=== PATIENT | female | born 2000 | race Caucasian/White ===

== ENCOUNTER 2023-05-28 19:04 | Emergency (ER) | payer OTHER ==
[2023-05-28 19:10] VITALS: RESP 16; TEMP 97.9; O2SAT 100
--- NOTE | 2023-05-28 19:14 | ERPHSYRPT ---
- History of Present Illness Time Seen by Provider: 05/28/23 19:04 Historian: patient Exam Limitations: no limitations Physician History: Pt states she has had sharp intermittent left anterior chest pain since 8.5 hours with episodes lasting up to 1 minute with nausea; denies shortness of air, fever, cough, vomiting, abdominal pain. Aspirin Treatment Today: no aspirin today Allergies/Adverse Reactions: No Known Drug Allergies Allergy (Verified 05/28/23 19:22) Home Medications: No Reportable Medications [No Reported Medications] 01/26/23 [History] Hx Tetanus, Diphtheria Vaccination/Date Given: Yes Hx Influenza Vaccination/Date Given: No Hx Pneumococcal Vaccination/Date Given: No Travel Risk - Vaccine Status Have you recieved a Covid-19 vaccination: No - Review of Systems Constitutional: No Fever Ears, Nose, & Throat: No Ear Pain, No Throat Pain Respiratory: No Cough, No Dyspnea Cardiac: Chest Pain Abdominal/Gastrointestinal: Nausea, No Abdominal Pain, No Vomiting Genitourinary Symptoms: No Dysuria Skin: No Rash - Past Medical History Pertinent Past Medical History: No Psycho-Social History: Depression - Past Surgical History Past Surgical History: No Female Surgical History: Section, Tubal Ligation Other Surgical History: Right tube had to be removed during tubal, ovarian cysts - Social History Smoking Status: Current some day smoker Exposure to second hand smoke: No Drug Use: none Patient Lives Alone: No (children) - Nursing Vital Signs Nursing Vital Signs: Initial Vital Signs Temperature 97.9 F 05/28/23 19:09 Pulse Rate 102 H 05/28/23 19:09 Respiratory Rate 16 05/28/23 19:09 Blood Pressure 131/97 05/28/23 19:09 O2 Sat by Pulse Oximetry 100 05/28/23 19:09 Pain Scale Pain Intensity 6 - Physical Exam General Appearance: alert Eye Exam: PERRL/EOMI Ears, Nose, Throat Exam: TMs normal, pharynx normal, moist mucous membranes Neck Exam: normal inspection Respiratory Exam: lungs clear, airway intact Cardiovascular Exam: normal heart sounds Gastrointestinal/Abdomen Exam: normal bowel sounds Back Exam: normal inspection Extremity Exam: No pedal edema Neurologic Exam: alert, cooperative Skin Exam: warm, dry - Course EKG Interpreted by Me: RATE (97), Sinus Rhythm, NORMAL AXIS, Other (QTc = 436) - Radiology Exams Chest X-ray Interpretation: Interpreted by me, No Pneumonia Ordered Tests: Active Orders 24 hr Category Date Time Status Environmental Communications Specialist STAT Care 05/28/23 19:14 Active EKG-ER Only STAT Care 05/28/23 19:11 Active IV Insertion STAT Care 05/28/23 19:11 Active CHEST 2 VIEWS (PA AND LAT) Stat Exams 05/28/23 19:12 Taken AMYLASE Stat Lab 05/28/23 19:20 Completed CBC W DIFF Stat Lab 05/28/23 19:20 Completed CMP Stat Lab 05/28/23 19:20 Completed HCG QUALITATIVE, SERUM Stat Lab 05/28/23 19:20 Completed LIPASE Stat Lab 05/28/23 19:20 Completed MAGNESIUM Stat Lab 05/28/23 19:20 Completed TROPONIN Q4H Lab 05/28/23 19:20 Completed TROPONIN Q4H Lab 05/28/23 23:15 Ordered TROPONIN Q4H Lab 05/29/23 03:15 Ordered Medication Summary Generic Name Dose Route Start Last Admin Trade Name Freq PRN Reason Stop Dose Admin Sodium Chloride 1,000 mls @ 100 mls/hr 05/28/23 19:15 05/28/23 19:18 Sodium Chloride 0.9% 1000 Ml IV 06/27/23 19:14 100 mls/hr .Q10H DAE Administration Discontinued Medications Generic Name Dose Route Start Last Admin Trade Name Freq PRN Reason Stop Dose Admin Aspirin 324 mg 05/28/23 19:13 05/28/23 19:19 Aspirin 81 Mg Tab.Chew PO 05/28/23 19:14 Not Given STAT ONE Aspirin Confirm 05/28/23 19:16 Aspirin 81 Mg Tab.Chew Administered 05/28/23 19:17 Dose 324 mg .ROUTE .STK-MED ONE Lab/Rad Data: Laboratory Result Diagrams 05/28/23 19:20 05/28/23 19:20 Laboratory Results 05/28/23 05/28/23 05/28/23 Range/Units 20:00 20:00 19:20 WBC (4.0-10.5) x10^3/uL RBC (4.1-5.4) x10^6/uL Hgb (12.0-16.0) g/dL Hct (35-47) % MCV (78-100) fL MCH (26-32) pg MCHC (32-36) g/dL RDW (11.5-14.0) % Plt Count (150-450) x10^3/uL MPV (7.5-11.0) fL Gran % (36.0-66.0) % Immature Gran % (Auto) (0.00-0.4) % Nucleat RBC Rel Count (0.00-0.1) % Eos # (Auto) (0-0.5) x10^3/uL Immature Gran # (Auto) (0.00-0.03) x10^3u/L Absolute Lymphs (auto) (1.0-4.6) x10^3/uL Absolute Monos (auto) (0.0-1.3) x10^3/uL Absolute Nucleated RBC (0.00-0.01) x10^3u/L Lymphocytes % (24.0-44.0) % Monocytes % (0.0-12.0) % Eosinophils % (0.00-5.0) % Basophils % (0.0-0.4) % Absolute Granulocytes (1.4-6.9) x10^3/uL Basophils # (0-0.4) x10^3/uL Sodium (137-145) mmol/L Potassium (3.5-5.1) mmol/L Chloride (98-107) mmol/L Carbon Dioxide (22-30) mmol/L Anion Gap (5-15) MEQ/L BUN (7-17) mg/dL Creatinine (0.52-1.04) mg/dL Estimated GFR ML/MIN Glucose (74-106) mg/dL Calcium (8.4-10.2) mg/dL Magnesium (1.6-2.3) mg/dL Total Bilirubin (0.2-1.3) mg/dL AST (14-36) U/L ALT (0-35) U/L Alkaline Phosphatase (38-126) U/L Troponin I (0.000-0.034) ng/mL Serum Total Protein (6.3-8.2) g/dL Albumin (3.5-5.0) g/dL Amylase (30-110) U/L Lipase (23-300) U/L Serum HCG, Qual NEGATIVE (NEGATIVE) Influenza Type A Ag NEGATIVE (NEGATIVE) Influenza Type B Ag NEGATIVE (NEGATIVE) RSV (PCR) NEGATIVE (NEGATIVE) SARS-CoV-2 (PCR) NEGATIVE (NEGATIVE) Group A Strep Antibody NOT DETECTED (NEGATIVE) 05/28/23 05/28/23 05/28/23 Range/Units 19:20 19:20 19:20 WBC 9.9 (4.0-10.5) x10^3/uL RBC 4.89 (4.1-5.4) x10^6/uL Hgb 14.0 (12.0-16.0) g/dL Hct 43.2 (35-47) % MCV 88.3 (78-100) fL MCH 28.6 (26-32) pg MCHC 32.4 (32-36) g/dL RDW 15.0 H (11.5-14.0) % Plt Count 323 (150-450) x10^3/uL MPV 9.8 (7.5-11.0) fL Gran % 56.7 (36.0-66.0) % Immature Gran % (Auto) 0.1 (0.00-0.4) % Nucleat RBC Rel Count 0.0 (0.00-0.1) % Eos # (Auto) 0.26 (0-0.5) x10^3/uL Immature Gran # (Auto) 0.01 (0.00-0.03) x10^3u/L Absolute Lymphs (auto) 3.17 (1.0-4.6) x10^3/uL Absolute Monos (auto) 0.77 (0.0-1.3) x10^3/uL Absolute Nucleated RBC 0.00 (0.00-0.01) x10^3u/L Lymphocytes % 32.0 (24.0-44.0) % Monocytes % 7.8 (0.0-12.0) % Eosinophils % 2.6 (0.00-5.0) % Basophils % 0.8 (0.0-0.4) % Absolute Granulocytes 5.63 (1.4-6.9) x10^3/uL Basophils # 0.08 (0-0.4) x10^3/uL Sodium 138 (137-145) mmol/L Potassium 3.8 (3.5-5.1) mmol/L Chloride 105 (98-107) mmol/L Carbon Dioxide 24 (22-30) mmol/L Anion Gap 12.8 (5-15) MEQ/L BUN 13 (7-17) mg/dL Creatinine 0.64 (0.52-1.04) mg/dL Estimated GFR 126.5 ML/MIN Glucose 108 H (74-106) mg/dL Calcium 9.8 (8.4-10.2) mg/dL Magnesium 1.9 (1.6-2.3) mg/dL Total Bilirubin 1.10 (0.2-1.3) mg/dL AST 23 (14-36) U/L ALT 16 (0-35) U/L Alkaline Phosphatase 68 (38-126) U/L Troponin I < 0.012 (0.000-0.034) ng/mL Serum Total Protein 7.5 (6.3-8.2) g/dL Albumin 4.7 (3.5-5.0) g/dL Amylase 117 H (30-110) U/L Lipase 232 (23-300) U/L Serum HCG, Qual (NEGATIVE) Influenza Type A Ag (NEGATIVE) Influenza Type B Ag (NEGATIVE) RSV (PCR) (NEGATIVE) SARS-CoV-2 (PCR) (NEGATIVE) Group A Strep Antibody (NEGATIVE) - Progress Progress: improved Counseled pt/family regarding: lab results, diagnosis, rad results Medical Desision Making - Diagnostic Testing Diagnostic test were ordered, analyzed, and reviewed by me: Yes Radiological Interpretation: Interpreted by me - Departure Departure Disposition: Home Clinical Impression: Chest pain, pharyngitis - non-strep Condition: Stable Critical Care Time: No Referrals: DOCTOR,NO FAMILY [Primary Care Provider] - Follow up/PCP as directed Instructions: Chest Pain (DC) Additional Instructions: Follow up with private doctor tomorrow. Forms: Work/School Release Form
[2023-05-28] MEDS ORDERED: Sodium Chloride 0.9% 1000 ML 1,000 ML IV SCH (19:15)
[2023-05-28] MEDS ORDERED: BABY ASPIRIN 81 MG CHEW ONE (19:16)
[2023-05-28] MEDS ORDERED: Sodium Chloride 0.9% 1000 ML 1,000 ML ONE (19:16)
[2023-05-28] MEDS: BABY ASPIRIN 81 MG CHEW PO ONE ×2 (19:18→19:19)
[2023-05-28 19:30] LABS: Absolute Neutrophil Ct (ANC) 5.63 x10^3/uL (1.4-6.9); BASOPHIL % 0.8 % (0.0-0.4); Basophil (Absolute #) 0.08 x10^3/uL (0-0.4); Eosinophil % 2.6 % (0.00-5.0); Eosinophil (Absolute #) 0.26 x10^3/uL (0-0.5); Hematocrit 43.2 % (35-47); IMMATURE GRAN # 0.01 x10^3u/L (0.00-0.03); IMMATURE GRAN % 0.1 % (0.00-0.4); Lymphocyte (Absolute #) 3.17 x10^3/uL (1.0-4.6); Mean Cell Volume 88.3 fL (78-100); Mean Corpuscular Hemoglobin 28.6 pg (26-32); Mean Corpuscular Hgb Concent. 32.4 g/dL (32-36); Mean Platelet Volume 9.8 fL (7.5-11.0); Monocyte (Absolute #) 0.77 x10^3/uL (0.0-1.3); Monocytes % 7.8 % (0.0-12.0); Neutrophil % 56.7 % (36.0-66.0); Platelet Count 323 x10^3/uL (150-450); Red Blood Count 4.89 x10^6/uL (4.1-5.4); White Blood Count 9.9 x10^3/uL (4.0-10.5)
[2023-05-28 19:44] LABS: HCG SERUM TEST NEGATIVE (NEGATIVE)
[2023-05-28 19:48] LABS: ALBUMIN 4.7 g/dL (3.5-5.0); ANION GAP 12.8 MEQ/L (5-15); BILIRUBIN,TOTAL 1.1 mg/dL (0.2-1.3); Calcium 9.8 mg/dL (8.4-10.2); Creatinine 1 0.64 mg/dL (0.52-1.04); EST GLOMERULAR FILTRATION RATE 126.5 ML/MIN; MAGNESIUM 1.9 mg/dL (1.6-2.3); Potassium 3.8 mmol/L (3.5-5.1); Total Protein 7.5 g/dL (6.3-8.2)
[2023-05-28 21:01] LABS: INFLUENZA A NEGATIVE (NEGATIVE); INFLUENZA B NEGATIVE (NEGATIVE); RESPIRATORY SYNCTIAL VIRUS NEGATIVE (NEGATIVE); SARS-CoV-2 Xpert Express NEGATIVE (NEGATIVE)
[2023-05-28 21:29] VITALS: BP 109/83; PULSE 90
--- NOTE | 2023-05-29 08:40 | XRAY ---
Indication: Chest pain. Comparison: None PA/lateral chest demonstrates normal heart, lungs, and bony thorax.
== END 2023-05-28 21:39 | disposition home or self-care (01) ==
LOC: ED 19:04
DX: R07.9 Chest pain, unspecified (principal); J02.9 Acute pharyngitis, unspecified; Z28.310 Unvaccinated for COVID-19; Z72.0 Tobacco use
CPT/HCPCS: 0241U; 36000; 36415; 71046; 80053; 82150; 83690; 83735; 84484; 84703; 85025; 87651; 93005; 93041; 99284; A9270-GY

== ENCOUNTER 2023-06-10 12:42 | Emergency (ER) | payer OTHER ==
[2023-06-10 13:14] VITALS: O2SAT 100
[2023-06-10] MEDS ORDERED: Sodium Chloride 0.9% 1000 ML 1,000 ML ONE (13:30)
[2023-06-10] MEDS ORDERED: HYDROCODONE-ACETAMIN 2.5-108/5 ML SOLUTION ONE (13:30)
[2023-06-10] MEDS: Sodium Chloride 0.9% 1000 ML 1,000 ML IV STA (13:31)
[2023-06-10] MEDS: HYDROCODONE-ACETAMIN 2.5-108/5 ML SOLUTION PO STA (13:31)
[2023-06-10 13:44] LABS: Absolute Neutrophil Ct (ANC) 5.51 x10^3/uL (1.4-6.9); BASOPHIL % 0.4 % (0.0-0.4); Basophil (Absolute #) 0.04 x10^3/uL (0-0.4); Eosinophil % 0.7 % (0.00-5.0); Eosinophil (Absolute #) 0.06 x10^3/uL (0-0.5); Hematocrit 36.1 % (35-47); Hemoglobin 11.4 g/dL (12.0-16.0); IMMATURE GRAN # 0.03 x10^3u/L (0.00-0.03); IMMATURE GRAN % 0.3 % (0.00-0.4); Lymphocyte (Absolute #) 2.64 x10^3/uL (1.0-4.6); Lymphocytes % 29.1 % (24.0-44.0); Mean Cell Volume 91.6 fL (78-100); Mean Corpuscular Hemoglobin 28.9 pg (26-32); Mean Corpuscular Hgb Concent. 31.6 g/dL (32-36); Mean Platelet Volume 10.6 fL (7.5-11.0); Monocytes % 8.8 % (0.0-12.0); Neutrophil % 60.7 % (36.0-66.0); Platelet Count 246 x10^3/uL (150-450); Red Blood Count 3.94 x10^6/uL (4.1-5.4); Red Cell Distribution Width 15.2 % (11.5-14.0); White Blood Count 9.1 x10^3/uL (4.0-10.5)
[2023-06-10 14:03] LABS: ALBUMIN 4.3 g/dL (3.5-5.0); ANION GAP 8.5 MEQ/L (5-15); BILIRUBIN,TOTAL 1.1 mg/dL (0.2-1.3); Calcium 9.6 mg/dL (8.4-10.2); Creatinine 1 0.71 mg/dL (0.52-1.04); EST GLOMERULAR FILTRATION RATE 121.7 ML/MIN; Total Protein 6.8 g/dL (6.3-8.2)
[2023-06-10] MEDS ORDERED: DECADRON 10MG INJ. ONE (14:53)
[2023-06-10] MEDS: DECADRON 10MG INJ. IV ONE (14:54)
--- NOTE | 2023-06-10 14:59 | ERPHSYRPT ---
- History of Present Illness Time Seen by Provider: 06/10/23 12:59 Source: patient, family Exam Limitations: no limitations Patient Subjective Stated Complaint: throat swelling Triage Nursing Assessment: Patient had tonsills and adenoids removed last at [facility] by Dr. Mcgrath and was discharged around 1400. At approximately 2100 patient was eating mashed potatoes and choked causing her to hemorhage- patient then went to [facility] in [place] and went back in for a second surgery to stop the bleeding by Dr. Lancaster. Patient reports that her stomach was pumped due to the blood loss but denies having a blood transfusion. Patient reports to the ER today with increased pain, swelling and states that she is not able to swallow any liquids/food or medications x 2 days. Patient reports pain to throat 10 at this time. Patient denies difficulty breathing and is resting in bed with easy respirations and O2 sat 100% on room air. Patients mother at bedside and is concerned about possible dehydration. Physician History: 23 years old female status post tonsillectomy/adenoidectomy postop day 2 presented in the ER with chief complaint of increasing throat pain and decreased oral intake even liquids makes her choke and hard time tolerating secretions. patient was given pain medications but she cannot swallow. Patient had postop bleeding on the day of surgery and was retaken to the OR with cauterization done. Patient/mom worried about dehydration/anemia. No difficulty breathing or chest pain reported. No fever or chills reported. Allergies/Adverse Reactions: No Known Drug Allergies Allergy (Verified 06/10/23 12:53) Home Medications: No Reportable Medications [No Reported Medications] 01/26/23 [History] Hx Tetanus, Diphtheria Vaccination/Date Given: Yes Hx Influenza Vaccination/Date Given: No Hx Pneumococcal Vaccination/Date Given: No Travel Risk - International Travel Have you traveled outside of the country in past 3 weeks: No - Coronavirus Screening Are you exhibiting any of the following symptoms?: No - Vaccine Status Have you recieved a Covid-19 vaccination: No - Review of Systems Constitutional: No Symptoms Eyes: No Symptoms Ears, Nose, & Throat: Throat Pain, Throat Swelling, Painful Swallowing Respiratory: No Symptoms Cardiac: No Symptoms Abdominal/Gastrointestinal: No Symptoms Genitourinary Symptoms: No Symptoms Skin: No Symptoms Neurological: No Symptoms Psychological: No Symptoms - Past Medical History Pertinent Past Medical History: No Neurological History: No Pertinent History ENT History: Other Cardiac History: No Pertinent History Respiratory History: No Pertinent History Endocrine Medical History: No Pertinent History Musculoskeletal History: No Pertinent History GI Medical History: No Pertinent History History: No Pertinent History Psycho-Social History: Depression Female Reproductive Disorders: No Pertinent History Other Medical History: vaginal x1, x2, ectopic x1. tonsilitis - Past Surgical History Past Surgical History: Yes Neuro Surgical History: No Pertinent History Cardiac: No Pertinent History Respiratory: No Pertinent History Gastrointestinal: No Pertinent History Genitourinary: No Pertinent History Musculoskeletal: No Pertinent History Female Surgical History: Section, Tubal Ligation Other Surgical History: Right tube had to be removed during tubal, ovarian cysts - Social History Smoking Status: Light tobacco smoker Exposure to second hand smoke: No Drug Use: marijuana Patient Lives Alone: No - Female History Hx Now: No - Nursing Vital Signs Nursing Vital Signs: Initial Vital Signs Pulse Rate 87 06/10/23 12:55 Respiratory Rate 19 06/10/23 12:55 Blood Pressure 110/74 06/10/23 12:55 O2 Sat by Pulse Oximetry 100 06/10/23 12:55 Pain Scale Pain Intensity 10 - Physical Exam General Appearance: no apparent distress, alert Eye Exam: bilateral eye: normal inspection, PERRL, EOMI Ear Exam: bilateral ear: auricle normal, canal normal, TM normal Nasal Exam: normal inspection Throat Exam: normal, pharynx normal, uvula swelling (Deviated to the left with tonsillar breath cauterization.), No dental tenderness Cardiovascular/Respiratory Exam: normal breath sounds, regular rate/rhythm Abdominal Exam: non-tender, soft Neurologic Exam: alert, oriented x 3, cooperative, 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 Skin Exam: normal color SpO2 Interpretation: normal SpO2: 100 O2 Delivery: Room Air Ordered Tests: Active Orders 24 hr Category Date Time Status CBC W DIFF Stat Lab 06/10/23 13:30 Completed CMP Stat Lab 06/10/23 13:30 Completed Medication Summary Discontinued Medications Generic Name Dose Route Start Last Admin Trade Name Freq PRN Reason Stop Dose Admin Hydrocodone Bitart/Acetaminophen 15 ml 06/10/23 13:26 06/10/23 13:31 Hydrocodone/Acetaminophen 5 Ml Udcup PO 06/10/23 13:27 15 ml STAT STA Administration Hydrocodone Bitart/Acetaminophen Confirm 06/10/23 13:30 Hydrocodone/Acetaminophen 5 Ml Udcup Administered 06/10/23 13:31 Dose 15 ml .ROUTE .STK-MED ONE Dexamethasone Sodium Phosphate 8 mg 06/10/23 14:39 06/10/23 14:54 Dexamethasone Sod Phosphate 10 Mg/Ml IV 06/10/23 14:40 8 mg STAT ONE Administration Dexamethasone Sodium Phosphate Confirm 06/10/23 14:53 Dexamethasone Sod Phosphate 10 Mg/Ml Administered 06/10/23 14:54 Dose 10 mg .ROUTE .STK-MED ONE Sodium Chloride 1,000 mls @ 999 mls/hr 06/10/23 13:26 06/10/23 14:34 Sodium Chloride 0.9% 1000 Ml IV 06/10/23 14:26 Infused .Q1H1M STA Infusion Sodium Chloride Confirm 06/10/23 13:30 Sodium Chloride 0.9% 1000 Ml Administered 06/10/23 13:31 Dose 1,000 mls @ ud .ROUTE .STK-MED ONE Lab/Rad Data: Laboratory Result Diagrams 06/10/23 13:30 06/10/23 13:30 Laboratory Results 06/10/23 06/10/23 Range/Units 13:30 13:30 WBC 9.1 (4.0-10.5) x10^3/uL RBC 3.94 L (4.1-5.4) x10^6/uL Hgb 11.4 L (12.0-16.0) g/dL Hct 36.1 (35-47) % MCV 91.6 (78-100) fL MCH 28.9 (26-32) pg MCHC 31.6 L (32-36) g/dL RDW 15.2 H (11.5-14.0) % Plt Count 246 (150-450) x10^3/uL MPV 10.6 (7.5-11.0) fL Gran % 60.7 (36.0-66.0) % Immature Gran % (Auto) 0.3 (0.00-0.4) % Nucleat RBC Rel Count 0.0 (0.00-0.1) % Eos # (Auto) 0.06 (0-0.5) x10^3/uL Immature Gran # (Auto) 0.03 (0.00-0.03) x10^3u/L Absolute Lymphs (auto) 2.64 (1.0-4.6) x10^3/uL Absolute Monos (auto) 0.80 (0.0-1.3) x10^3/uL Absolute Nucleated RBC 0.00 (0.00-0.01) x10^3u/L Lymphocytes % 29.1 (24.0-44.0) % Monocytes % 8.8 (0.0-12.0) % Eosinophils % 0.7 (0.00-5.0) % Basophils % 0.4 (0.0-0.4) % Absolute Granulocytes 5.51 (1.4-6.9) x10^3/uL Basophils # 0.04 (0-0.4) x10^3/uL Sodium 140 (137-145) mmol/L Potassium 4.0 (3.5-5.1) mmol/L Chloride 104 (98-107) mmol/L Carbon Dioxide 32 H (22-30) mmol/L Anion Gap 8.5 (5-15) MEQ/L BUN 7 (7-17) mg/dL Creatinine 0.71 (0.52-1.04) mg/dL Estimated GFR 121.7 ML/MIN Glucose 80 (74-106) mg/dL Calcium 9.6 (8.4-10.2) mg/dL Total Bilirubin 1.10 (0.2-1.3) mg/dL AST 22 (14-36) U/L ALT 18 (0-35) U/L Alkaline Phosphatase 51 (38-126) U/L Serum Total Protein 6.8 (6.3-8.2) g/dL Albumin 4.3 (3.5-5.0) g/dL - Progress Progress: improved, pain not gone completely, re-examined Progress Note: 06/10/23 14:56 23-year-old with postop day 2 tonsillectomy adenoidectomy complicated by bleeding in the evening of surgery needing recauterization is evaluated in the ER for increasing pain and decreased ability to swallow because of pain. Patien t is not in any distress. No active bleeding or clots noticed in the throat. Hemoglobin 11, chemistries fairly unremarkable. Given fluids and symptomatic treatment with liquid hydrocodone. On reevaluation patient is feeling much better. I have discussed with Dr. Cielo Jolley, [facility], reviewed history, workup, recommended giving 8 mg IV Decadron and patient to start her home dose of steroid tomorrow and crushing up pain pills, honey lozenges and outpatient follow-up as scheduled on Monday. I have discussed the results of workup, ENT recommendation with patient and family which they seem understanding. Discussed with Dr.: Other (Dr. Cielo Jolley, [facility] [id number]) Will see patient in: office Counseled pt/family regarding: lab results, diagnosis, need for follow-up Medical Desision Making - Discussion of managment Care discussed with:: specialist (ENT Dr. Buck [facility]) Reviewed:: Test results Agreed on:: Treatment plan, need for follow-up Will see patient: In office - Diagnostic Testing Diagnostic test were ordered, analyzed, and reviewed by me: Yes - Risk of complications The pt has a mod risk of morbidity or mortality based on: Need for prescription drug management - Departure Departure Disposition: Home Clinical Impression: Difficulty swallowing, Postoperative pain, Dehydration Condition: Stable Critical Care Time: No Referrals: DOCTOR,NO FAMILY [Primary Care Provider] - Follow up/PCP as directed (With your ENT Dr. Mcgrath as scheduled on Monday morning.) Instructions: Diet After Mouth or Throat Surgery Additional Instructions: Start your steroids tomorrow morning. Take pain medications as recommended. Increase hydration and take soft diet as tolerated. Keep appointment with ENT as scheduled on Monday. Return to ER for intractable throat pain, difficulty swallowing liquids/saliva/difficulty breathing etc.
[2023-06-10 15:02] VITALS: BP 100/53; PULSE 75; RESP 17
== END 2023-06-10 15:16 | disposition home or self-care (01) ==
LOC: ED 12:42
DX: G89.18 Other acute postprocedural pain (principal); R07.0 Pain in throat; R13.10 Dysphagia, unspecified; E86.0 Dehydration; Z28.310 Unvaccinated for COVID-19; Z72.0 Tobacco use
CPT/HCPCS: 36415; 80053; 85025; 96374; 99283; J1100; A9270-GY

== ENCOUNTER 2023-06-19 22:11 | Emergency (ER) | payer OTHER ==
--- NOTE | 2023-06-19 22:25 | ERPHSYRPT ---
- History of Present Illness Time Seen by Provider: 06/19/23 22:25 Source: patient Exam Limitations: no limitations Physician History: This is a 23-year-old white female patient who had postoperative oral cavity blood clots/bleeding. She is status post bilateral tonsillectomy and adenoidectomy approximately [place] days ago. She has already been taken to the operating once within the last 11 days for postoperative bleed. This evening, prior to arrival, patient was bending over and she had a single episode of bleeding into her oral cavity. Her oral Cavity filled up with blood clot. She feels that it is coming from the left side. Patient does have oral candidal infection but was told by her hearing aid consultant not to treat this. Patient has known drug allergies and she is not on any medications at this time. Timing/Duration: abrupt onset, this evening Severity: mild ENT Location: mouth Prearrival Treatment: no prearrival treatment Modifying Factors: Improves With: nothing Associated Symptoms: other (Oral cavity filled with blood clots prior to arrival. This appears to have resolved.) Allergies/Adverse Reactions: No Known Drug Allergies Allergy (Verified 06/19/23 22:29) Home Medications: Oxycodone HCl/Acetaminophen [Oxycodone-Acetaminophn 7.5-325] 1 each PO Q6H PRN PRN 06/20/23 [History] ondansetron HCL [Zofran] 0.5 tab PO Q8HPRN PRN 06/20/23 [History] Hx Tetanus, Diphtheria Vaccination/Date Given: Yes Hx Influenza Vaccination/Date Given: No Hx Pneumococcal Vaccination/Date Given: No Travel Risk - International Travel Have you traveled outside of the country in past 3 weeks: No - Coronavirus Screening Are you exhibiting any of the following symptoms?: No Close contact with a COVID-19 positive Pt in past 14-21 Days: No - Vaccine Status Have you recieved a Covid-19 vaccination: No - Review of Systems Constitutional: No Symptoms Eyes: No Symptoms Ears, Nose, & Throat: Other (Post tonsillectomy and adenoidectomy bleed) Respiratory: No Symptoms Cardiac: No Symptoms Abdominal/Gastrointestinal: No Symptoms Genitourinary Symptoms: No Symptoms Musculoskeletal: No Symptoms Skin: No Symptoms Neurological: No Symptoms Psychological: No Symptoms Endocrine: No Symptoms Hematologic/Lymphatic: No Symptoms Immunological/Allergic: No Symptoms All Other Systems: Reviewed and Negative - Past Medical History Pertinent Past Medical History: No Neurological History: No Pertinent History ENT History: Other Cardiac History: No Pertinent History Respiratory History: No Pertinent History Endocrine Medical History: No Pertinent History Musculoskeletal History: No Pertinent History GI Medical History: No Pertinent History History: No Pertinent History Psycho-Social History: Depression Female Reproductive Disorders: No Pertinent History Other Medical History: vaginal x1, x2, ectopic x1. tonsilitis - Past Surgical History Past Surgical History: Yes Neuro Surgical History: No Pertinent History Cardiac: No Pertinent History Respiratory: No Pertinent History Gastrointestinal: No Pertinent History Genitourinary: No Pertinent History Musculoskeletal: No Pertinent History Female Surgical History: Section, Tubal Ligation Other Surgical History: Right tube had to be removed during tubal, ovarian cysts - Social History Smoking Status: Light tobacco smoker Exposure to second hand smoke: No Drug Use: marijuana Patient Lives Alone: No - Nursing Vital Signs Nursing Vital Signs: Initial Vital Signs Temperature 98.9 F 06/19/23 22:30 Pulse Rate 76 06/19/23 22:30 Respiratory Rate 18 06/19/23 22:30 Blood Pressure 104/86 06/19/23 22:30 O2 Sat by Pulse Oximetry 100 06/19/23 22:30 Pain Scale Pain Intensity 6 - Physical Exam General Appearance: no apparent distress, alert, anxiety, thin Eye Exam: bilateral eye: normal inspection, PERRL, EOMI Ear Exam: bilateral ear: auricle normal Nasal Exam: normal inspection Throat Exam: moist mucus membranes (Status post bilateral tonsillectomy and adenoidectomy. Expected postop fibrinous exudate present bilaterally. No active bleeding. No blood clots visualized. 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 II-XII nml as tested, no rmal mood/affect, nml cerebellar function Skin Exam: normal color, warm, dry SpO2 Interpretation: normal O2 Delivery: Room Air - Course Nursing assessment & vital signs reviewed: Yes Ordered Tests: Active Orders 24 hr Category Date Time Status IV Insertion STAT Care 06/19/23 22:55 Active CBC W DIFF Stat Lab 06/19/23 22:55 Completed CMP Stat Lab 06/19/23 23:05 Completed MAG [MAGNESIUM] Stat Lab 06/19/23 23:05 Completed Medication Summary Discontinued Medications Generic Name Dose Route Start Last Admin Trade Name Justen PRN Reason Stop Dose Admin Methylprednisolone Sodium 0 mg 06/19/23 22:55 06/19/23 23:21 Succinate 125 mg/ Sterile IV 06/19/23 22:56 125 mg Water 2 ml STAT ONE Administration Sodium Chloride 1,000 mls @ 999 mls/hr 06/19/23 22:55 06/19/23 23:22 Sodium Chloride 0.9% 1000 Ml IV 06/19/23 23:55 999 mls/hr .Q1H1M STA Administration Sodium Chloride Confirm 06/19/23 23:15 Sodium Chloride 0.9% 1000 Ml Administered 06/19/23 23:16 Dose 1,000 mls @ ud .ROUTE .STK-MED ONE Methylprednisolone Sodium Succinate Confirm 06/19/23 23:15 Methylprednis Sod Succ 125 Mg/2 Ml Vial Administered 06/19/23 23:16 Dose 125 mg .ROUTE .STK-MED ONE Ondansetron HCl 4 mg 06/19/23 22:55 06/19/23 23:21 Ondansetron Hcl 4 Mg/2 Ml Vial IV 06/19/23 22:56 4 mg STAT ONE Administration Ondansetron HCl Confirm 06/19/23 23:15 Ondansetron Hcl 4 Mg/2 Ml Vial Administered 06/19/23 23:16 Dose 4 mg .ROUTE .STK-MED ONE Sterile Water Confirm 06/19/23 23:15 Water For Injection,Sterile 10 Ml Vial Administered 06/19/23 23:16 Dose 10 ml IJ .STK-MED ONE Lab/Rad Data: Laboratory Result Diagrams 06/19/23 22:55 06/19/23 23:05 Laboratory Results 06/19/23 06/19/23 Range/Units 23:05 22:55 WBC 7.6 (4.0-10.5) x10^3/uL RBC 4.63 (4.1-5.4) x10^6/uL Hgb 13.1 (12.0-16.0) g/dL Hct 41.1 (35-47) % MCV 88.8 (78-100) fL MCH 28.3 (26-32) pg MCHC 31.9 L (32-36) g/dL RDW 13.9 (11.5-14.0) % Plt Count 366 (150-450) x10^3/uL MPV 9.2 (7.5-11.0) fL Gran % 56.3 (36.0-66.0) % Immature Gran % (Auto) 0.4 (0.00-0.4) % Nucleat RBC Rel Count 0.0 (0.00-0.1) % Eos # (Auto) 0.11 (0-0.5) x10^3/uL Immature Gran # (Auto) 0.03 (0.00-0.03) x10^3u/L Absolute Lymphs (auto) 2.50 (1.0-4.6) x10^3/uL Absolute Monos (auto) 0.63 (0.0-1.3) x10^3/uL Absolute Nucleated RBC 0.00 (0.00-0.01) x10^3u/L Lymphocytes % 33.1 (24.0-44.0) % Monocytes % 8.3 (0.0-12.0) % Eosinophils % 1.5 (0.00-5.0) % Basophils % 0.4 (0.0-0.4) % Absolute Granulocytes 4.25 (1.4-6.9) x10^3/uL Basophils # 0.03 (0-0.4) x10^3/uL Sodium 137 (137-145) mmol/L Potassium 4.1 (3.5-5.1) mmol/L Chloride 102 (98-107) mmol/L Carbon Dioxide 29 (22-30) mmol/L Anion Gap 9.4 (5-15) MEQ/L BUN 6 L (7-17) mg/dL Creatinine 0.67 (0.52-1.04) mg/dL Estimated GFR 125.1 ML/MIN Glucose 101 (74-106) mg/dL Calcium 9.8 (8.4-10.2) mg/dL Magnesium 2.0 (1.6-2.3) mg/dL Total Bilirubin 0.50 (0.2-1.3) mg/dL AST 27 (14-36) U/L ALT 24 (0-35) U/L Alkaline Phosphatase 73 (38-126) U/L Serum Total Protein 7.5 (6.3-8.2) g/dL Albumin 4.6 (3.5-5.0) g/dL - Progress Progress: improved, re-examined Progress Note: 06/19/23 23:08 This patient's medical issue is 1 of moderate complexity. Level of complexity in the workup performed is based on review of the patient's past medical history, review of the patient's medication list, review of the patient's drug allergy list, history present illness and physical findings on examination. The workup includes placement of intravenous line, infusion of 1 L normal saline solution, CBC, BMP, magnesium level, infusion of Zofran intravenously 4 mg and infusion 125 mg Solu-Medrol. 06/20/23 00:35 I interpreted the results of the patient's workup. There is no evidence of any acute, emergent findings based on the patient's laboratory results. During the patient's stay in the emergency department, there is been no evidence of any oral cavity bleeding. Patient/patient family contacted the patient's surgeon and they do recommend the patient go to be evaluated after discharge here from the emergency department. There are no ENT specialist in [place] or here in [facility]. Patient is hemodynamically stable enough to transfer to a hospital facility of her choice for ENT specialist evaluation/intervention. Counseled pt/family regarding: lab results, diagnosis, need for follow-up Medical Desision Making - Independent Historian Additional History obtained from: Family - Diagnostic Testing Diagnostic test were ordered, analyzed, and reviewed by me: Yes Radiological Interpretation: Reviewed by me - Risk of complications Low Risk: Low risk of morbidity from additional dx testing or treatment - Departure Departure Disposition: Home Clinical Impression: Post-op bleeding Condition: Stable Critical Care Time: No Referrals: DOCTOR,NO FAMILY [Primary Care Provider] - Follow up/PCP as directed Additional Instructions: Go directly to your facility of choice where ENT specialist may evaluate you and intervene as they see appropriate.
[2023-06-19 23:14] LABS: Absolute Neutrophil Ct (ANC) 4.25 x10^3/uL (1.4-6.9); BASOPHIL % 0.4 % (0.0-0.4); Basophil (Absolute #) 0.03 x10^3/uL (0-0.4); Eosinophil % 1.5 % (0.00-5.0); Eosinophil (Absolute #) 0.11 x10^3/uL (0-0.5); Hematocrit 41.1 % (35-47); Hemoglobin 13.1 g/dL (12.0-16.0); IMMATURE GRAN # 0.03 x10^3u/L (0.00-0.03); IMMATURE GRAN % 0.4 % (0.00-0.4); Lymphocytes % 33.1 % (24.0-44.0); Mean Cell Volume 88.8 fL (78-100); Mean Corpuscular Hemoglobin 28.3 pg (26-32); Mean Corpuscular Hgb Concent. 31.9 g/dL (32-36); Mean Platelet Volume 9.2 fL (7.5-11.0); Monocyte (Absolute #) 0.63 x10^3/uL (0.0-1.3); Monocytes % 8.3 % (0.0-12.0); Neutrophil % 56.3 % (36.0-66.0); Platelet Count 366 x10^3/uL (150-450); Red Blood Count 4.63 x10^6/uL (4.1-5.4); Red Cell Distribution Width 13.9 % (11.5-14.0); White Blood Count 7.6 x10^3/uL (4.0-10.5)
[2023-06-19] MEDS ORDERED: solu-MEDROL ONE (23:15)
[2023-06-19] MEDS ORDERED: Sterile H2O 10 ml IJ ONE (23:15)
[2023-06-19] MEDS ORDERED: Zofran 4 MG/2 ML VIAL ONE (23:15)
[2023-06-19] MEDS ORDERED: Sodium Chloride 0.9% 1000 ML 1,000 ML ONE (23:15)
[2023-06-19 23:16] VITALS: TEMP 98.9
[2023-06-19] MEDS: solu-MEDROL 125 MG, Sterile H2O 10 ml 2 ML IV ONE (23:21)
[2023-06-19] MEDS: Zofran 4 MG/2 ML VIAL IV ONE (23:21)
[2023-06-19] MEDS: Sodium Chloride 0.9% 1000 ML 1,000 ML IV STA (23:22)
[2023-06-19 23:28] LABS: ALBUMIN 4.6 g/dL (3.5-5.0); ANION GAP 9.4 MEQ/L (5-15); BILIRUBIN,TOTAL 0.5 mg/dL (0.2-1.3); Calcium 9.8 mg/dL (8.4-10.2); Creatinine 1 0.67 mg/dL (0.52-1.04); EST GLOMERULAR FILTRATION RATE 125.1 ML/MIN; Potassium 4.1 mmol/L (3.5-5.1); Total Protein 7.5 g/dL (6.3-8.2)
[2023-06-20 00:15] VITALS: O2SAT 100
[2023-06-20 01:03] VITALS: BP 112/63; PULSE 98; RESP 16
== END 2023-06-20 01:05 | disposition home or self-care (01) ==
LOC: ED 22:11
DX: K91.840 Postprocedural hemorrhage of a digestive system organ or structure following a digestive system procedure (principal); Z79.891 Long term (current) use of opiate analgesic; Z28.310 Unvaccinated for COVID-19; Z72.0 Tobacco use
CPT/HCPCS: 36000; 36415; 80053; 83735; 85025; 96374; 96375; 99284; J2405; J2930

== ENCOUNTER 2023-09-24 17:53 | Emergency (ER) | payer OTHER ==
[2023-09-24 18:04] VITALS: TEMP 97.2
--- NOTE | 2023-09-24 18:12 | ERPHSYRPT ---
- History of Present Illness Time Seen by Provider: 09/24/23 18:11 Source: patient, family Exam Limitations: no limitations Patient Subjective Stated Complaint: pt here for cough and sob for over a week now, no fever, Triage Nursing Assessment: pt alert, walked in, resp easy, occ dry cough, skin w/d/p. no edema noted, moves all ext well, Physician History: persisting cough for 2-3 weeks - family had same but theirs all resolved. No hx asthma. feeling some SObreath now. No N or V. CHest clear Ht reg without M. Pharynx clear swallowing OK in ER. discussed risks/benefits of testing/Tx with patient and available family including covid, RSV, Flu and strep swabs, CXR duoneb and they wish to proceed and these are ordered. results discussed with pt and available family. Timing/Duration: week(s) Cough Quality/Degree: dry cough Possible Cause: no prior episodes Modifying Factors: Improves With: coughing Associated Symptoms: cough, shortness of breath Allergies/Adverse Reactions: No Known Drug Allergies Allergy (Verified 09/24/23 17:56) Hx Tetanus, Diphtheria Vaccination/Date Given: No Hx Influenza Vaccination/Date Given: No Hx Pneumococcal Vaccination/Date Given: No Immunizations Up to Date: Yes Travel Risk - International Travel Have you traveled outside of the country in past 3 weeks: No - Emerging Infectious Disease Are you exhibiting symptoms associated with any current EIDs: Yes Symptoms: Cough: New Onset - Review of Systems Constitutional: No Fever, No Chills Eyes: No Symptoms Ears, Nose, & Throat: No Symptoms Respiratory: Cough, Dyspnea Cardiac: No Chest Pain, No Edema, No Syncope Abdominal/Gastrointestinal: No Abdominal Pain, No Nausea, No Vomiting, No Diarrhea Genitourinary Symptoms: No Dysuria Musculoskeletal: No Back Pain, No Neck Pain Skin: No Rash Neurological: No Dizziness, No Focal Weakness, No Sensory Changes Psychological: No Symptoms Endocrine: No Symptoms Hematologic/Lymphatic: No Symptoms Immunological/Allergic: No Symptoms All Other Systems: Reviewed and Negative - Past Medical History Pertinent Past Medical History: No Neurological History: No Pertinent History ENT History: Other Cardiac History: No Pertinent History Respiratory History: No Pertinent History Endocrine Medical History: No Pertinent History Musculoskeletal History: No Pertinent History GI Medical History: No Pertinent History History: No Pertinent History Psycho-Social History: Depression Female Reproductive Disorders: No Pertinent History Other Medical History: vaginal x1, x2, ectopic x1. tonsilitis - Past Surgical History Past Surgical History: Yes Neuro Surgical History: No Pertinent History Cardiac: No Pertinent History Respiratory: No Pertinent History Gastrointestinal: No Pertinent History Genitourinary: No Pertinent History Musculoskeletal: No Pertinent History Female Surgical History: Section, Tubal Ligation Other Surgical History: Right tube had to be removed during tubal, ovarian cysts - Female History Hx Last Menstrual Period: now Hx Now: No - Social History Smoking Status: Former smoker Exposure to second hand smoke: No Drug Use: none Patient Lives Alone: No - Nursing Vital Signs Nursing Vital Signs: Initial Vital Signs Temperature 97.2 F 09/24/23 18:03 Pulse Rate 107 H 09/24/23 18:03 Respiratory Rate 22 09/24/23 18:03 Blood Pressure 116/77 09/24/23 18:03 O2 Sat by Pulse Oximetry 98 09/24/23 18:03 Pain Scale Pain Intensity 6 - Physical Exam General Appearance: no apparent distress, alert Eye Exam: PERRL/EOMI, eyes nml inspection Ears, Nose, Throat Exam: normal ENT inspection, TMs normal, pharynx normal, moist mucous membranes Neck Exam: normal inspection, non-tender, supple, full range of motion Respiratory Exam: normal breath sounds, lungs clear, airway intact, No respiratory distress, No diminished breath sounds, No accessory muscle use, No prolonged expirations, No crackles/rales, No rhonchi, No wheezing, No stridor Cardiovascular Exam: regular rate/rhythm, normal heart sounds Gastrointestinal/Abdomen Exam: soft, No tenderness Pelvic Exam: deferred Rectal Exam: deferred Back Exam: normal inspection, No CVA tenderness, No vertebral tenderness Extremity Exam: normal inspection, normal range of motion Neurologic Exam: alert, oriented x 3, cooperative, normal mood/affect, sensation nml, No motor deficits Skin Exam: normal color, warm, dry, No rash Lymphatic Exam: No adenopathy SpO2 Interpretation: normal SpO2: 97 O2 Delivery: Room Air - Course Nursing assessment & vital signs reviewed: Yes - Radiology Exams Chest X-ray Interpretation: Interpreted by me, Reviewed by me, Other (a few granulomas otherwise no major infiltrates. ) Ordered Tests: Active Orders 24 hr Category Date Time Status CHEST 2 VIEWS (PA AND LAT) Stat Exams 09/24/23 18:17 Taken Respiratory Therapy Assessment DAILY RT 09/24/23 18:45 Active Medication Summary Discontinued Medications Generic Name Dose Route Start Last Admin Trade Name Justen PRN Reason Stop Dose Admin Albuterol/Ipratropium 3 ml 09/24/23 18:29 09/24/23 18:41 Ipratropium/Albuterol Sulfate 3 Ml Ampul.Neb IH 09/24/23 18:30 3 ml STAT ONE Administration Albuterol/Ipratropium Confirm 09/24/23 18:39 Ipratropium/Albuterol Sulfate 3 Ml Ampul.Neb Administered 09/24/23 18:40 Dose 3 ml IH .STK-MED ONE Lab/Rad Data: Laboratory Results 09/24/23 Range/Units 18:39 Influenza Type A Ag NEGATIVE (NEGATIVE) Influenza Type B Ag NEGATIVE (NEGATIVE) RSV (PCR) NEGATIVE (NEGATIVE) SARS-CoV-2 (PCR) NEGATIVE (NEGATIVE) Group A Strep Antibody NOT DETECTED (NEGATIVE) - Progress Progress: improved, re-examined Air Movement: good Progress Note: 09/24/23 19:50 Hr in 90s now and pt more comfortable after breathing treatment. discussed SObreath symptoms and pt states this is when coughing a lot and has to get her breath not really dyspneic and she declines further w/u d dimer, or cardiac or obs in hosp but prefers further f/u as outpt with PMD and understands there could be undetected pathology evolving including PE or cardiac or ID and has the capacity to make this choice with a normal mental status. 09/24/23 19:58 Blood Culture(s) Obtained: No Antibiotics given: No Counseled pt/family regarding: lab results, diagnosis, need for follow-up, rad results Medical Desision Making - Discussion of managment Reviewed:: Test results, Need for additional workup Agreed on:: Treatment plan, need for follow-up - Diagnostic Testing Diagnostic test were ordered, analyzed, and reviewed by me: Yes Radiological Interpretation: Interpreted by me, Reviewed by me - Risk of complications The pt has a mod risk of morbidity or mortality based on: Need for prescription drug management - Departure Departure Disposition: Home Clinical Impression: Persistent cough Condition: Good Critical Care Time: No Referrals: DOCTOR,NO FAMILY [Primary Care Provider] - Follow up/PCP as directed Instructions: Cough, Adult (DC) Additional Instructions: followup with your this week for further workup and final radiology reading will be available then as well. We have not yet found an exact cause for your symptoms so there could be undetected conditions including cardiac , respiratory, or vascular or other developing so this followup is important. We are treating like this could be a post inflammatory reactive airway with some steroids to see if that may help the symptoms . Return meantime if not improving, chest pain, short of breath, fever, dizziness or any other symptoms of concern. Prescriptions: Methylprednisolone Packet [Medrol Dosepack] 4 mg PO UD #30 packet
[2023-09-24] MEDS ORDERED: DUONEB 0.5-3 MG/3 ml Neb IH ONE (18:39)
[2023-09-24] MEDS: DUONEB 0.5-3 MG/3 ml Neb IH ONE (18:41)
[2023-09-24 19:07] LABS: Group A Strep NOT DETECTED (NEGATIVE)
[2023-09-24 19:17] VITALS: RESP 17
[2023-09-24 19:19] LABS: INFLUENZA A NEGATIVE (NEGATIVE); INFLUENZA B NEGATIVE (NEGATIVE); RESPIRATORY SYNCTIAL VIRUS NEGATIVE (NEGATIVE); SARS-CoV-2 Xpert Express NEGATIVE (NEGATIVE)
[2023-09-24 19:58] VITALS: O2SAT 97
[2023-09-24 20:08] VITALS: BP 101/55; PULSE 96
[2023-09-24] MEDS ORDERED: DELTASONE 20 MG ONE (20:17)
[2023-09-24] MEDS: DELTASONE 20 MG PO ONE (20:18)
--- NOTE | 2023-09-24 20:29 | XRAY ---
Indication: Persistent cough. Comparison: May 28, 2023 PA/lateral chest again demonstrates normal heart and lungs. Bony thorax intact with again minimal levoscoliosis. No new/acute findings.
== END 2023-09-24 20:26 | disposition home or self-care (01) ==
LOC: ED 17:53
DX: R05.3 Chronic cough (principal); Z79.52 Long term (current) use of systemic steroids
CPT/HCPCS: 0241U; 71046; 87651; 94640; 99283; A9270-GY

== ENCOUNTER 2023-12-24 14:32 | Emergency (ER) | payer OTHER ==
--- NOTE | 2023-12-24 14:37 | ERPHSYRPT ---
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 Patient began having symptoms of mild right flank pain 3 days ago followed by some mild suprapubic pain and urinary frequency and dysuria. She did notice a small amount of blood passage. Patient takes no medications chronically and she has no known drug allergies. She has been using Tylenol and cranberry pills. She denies nausea vomiting. She denies abdominal pain. Patient is not writhing around in pain. Timing/Duration: day(s) (3) Quality: burning Abdominal Pain Onset Location: suprapubic (Mild suprapubic discomfort), flank (Mild right flank pain) Severity of Pain-Max: mild (To moderate) Severity of Pain-Current: mild Modifying Factors: Improves With: nothing Associated Symptoms: No fever/chills Previous symptoms: no prior history, no recent treatment Allergies/Adverse Reactions: No Known Drug Allergies Allergy (Verified 12/24/23 14:41) Hx Tetanus, Diphtheria Vaccination/Date Given: No Hx Influenza Vaccination/Date Given: No Hx Pneumococcal Vaccination/Date Given: No Travel Risk - International Travel Have you traveled outside of the country in past 3 weeks: No - Emerging Infectious Disease Are you exhibiting symptoms associated with any current EIDs: No Symptoms: Cough: New Onset - Review of Systems Constitutional: No Symptoms Eyes: No Symptoms Ears, Nose, & Throat: No Symptoms Respiratory: No Symptoms Cardiac: No Symptoms Abdominal/Gastrointestinal: Abdominal Pain (Suprapubic) Genitourinary Symptoms: Dysuria, Frequency, Hematuria (Mild) Musculoskeletal: No Symptoms Skin: No Symptoms Neurological: No Symptoms Psychological: No Symptoms Endocrine: No Symptoms Hematologic/Lymphatic: No Symptoms Immunological/Allergic: No Symptoms All Other Systems: Reviewed and Negative - Past Medical History Pertinent Past Medical History: No Neurological History: No Pertinent History ENT History: Other Cardiac History: No Pertinent History Respiratory History: No Pertinent History Endocrine Medical History: No Pertinent History Musculoskeletal History: No Pertinent History GI Medical History: No Pertinent History History: No Pertinent History Psycho-Social History: Depression Female Reproductive Disorders: No Pertinent History Other Medical History: vaginal x1, x2, ectopic x1. tonsilitis - Past Surgical History Past Surgical History: Yes Neuro Surgical History: No Pertinent History Cardiac: No Pertinent History Respiratory: No Pertinent History Gastrointestinal: No Pertinent History Genitourinary: No Pertinent History Musculoskeletal: No Pertinent History Female Surgical History: Section, Tubal Ligation Other Surgical History: Right tube had to be removed during tubal, ovarian cysts - Social History Smoking Status: Former smoker Exposure to second hand smoke: No Drug Use: none Patient Lives Alone: No - Social Determinants of Health Will the patient participate in the screening: Yes Do you worry about a steady place to live?: No In the past 12 months,have you had to go without utilities?: No Transportation Issues: Yes Has anyone in your support network made you feel unsafe?: No Have you or anyone in your house had to go without enough: No - Nursing Vital Signs Nursing Vital Signs: Initial Vital Signs Blood Pressure 138/89 12/24/23 14:42 O2 Sat by Pulse Oximetry 99 12/24/23 14:42 Pain Scale Pain Intensity 6 - Physical Exam General Appearance: no apparent distress, alert, anxiety, thin Eye Exam: PERRL/EOMI, eyes nml inspection Ears, Nose, Throat Exam: normal ENT inspection, moist mucous membranes Neck Exam: normal inspection, non-tender, supple, full range of motion Respiratory Exam: airway intact, No chest tenderness, No respiratory distress Gastrointestinal/Abdomen Exam: tenderness (Mild suprapubic tenderness to palpation), No guarding, No rebound Pelvic Exam: not done Rectal Exam: not done Back Exam: normal inspection, normal range of motion, No CVA tenderness, No vertebral tenderness Extremity Exam: normal inspection, normal range of motion, pelvis stable Neurologic Exam: alert, oriented x 3, cooperative, 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 as tested, nml cerebellar function, nml station & gait, sensation nml Skin Exam: normal color, warm, dry Lymphatic Exam: No adenopathy SpO2 Interpretation: normal O2 Delivery: Room Air - Course Nursing assessment & vital signs reviewed: Yes Ordered Tests: Active Orders 24 hr Category Date Time Status CULTURE,URINE Stat Lab 12/24/23 14:46 Received HCG QUALITATIVE, URINE Stat Lab 12/24/23 Ordered UA W/RFX UR CULTURE Stat Lab 12/24/23 14:46 Completed Lab/Rad Data: Laboratory Results 12/24/23 Range/Units 14:46 Urine Color Yellow (Yellow) Urine Appearance Clear (Clear) Urine pH 6.5 (4.6-8.0) Ur Specific [place] 1.010 (1.005-1.030) Urine Protein Negative (Negative) Urine Glucose (UA) Negative (Negative) mg/dL Urine Ketones Negative (Negative) Urine Blood Moderate A (Negative) Urine Nitrite Negative (Negative) Urine Bilirubin Negative (Negative) Urine Urobilinogen 0.2 (0.2) mg/dL Ur Leukocyte Esterase Moderate A (Negative) U Hyaline Cast (Auto) NONE SEEN (0-2) /LPF Urine Microscopic RBC 11-20 A (0-5) /HPF Urine Microscopic WBC 21-50 A (0-5) /HPF Ur Epithelial Cells Rare (None Seen) /HPF Urine Bacteria None Seen (None Seen) /HPF Urine Culture Reflexed YES (NO) - Progress Progress: improved, pain not gone completely, re-examined Progress Note: 12/24/23 15:23 My medical decision making and the assignment of low complexity to this patient's medical issue today is based on review of the patient's past medical history, review the patient's medication list, review the patient drug allergy list, history present illness and physical findings on examination. The workup in this patient includes urinalysis and urine test. 12/24/23 15:28 I interpreted the patient's laboratory data results. Based on the laboratory data results, the patient does have a urinary tract infection that is significant. Counseled pt/family regarding: lab results, diagnosis, need for follow-up Medical Desision Making - Independent Historian Additional History obtained from: Spouse - Diagnostic Testing Diagnostic test were ordered, analyzed, and reviewed by me: Yes - Risk of complications The pt has a mod risk of morbidity or mortality based on: Need for prescription drug management - Departure Departure Disposition: Home Clinical Impression: UTI (urinary tract infection) Condition: Stable Critical Care Time: No Referrals: RAYRAY MIRZA NP [Primary Care Provider] - Follow up/PCP as directed Additional Instructions: Drink plenty of fluids. Use Tylenol and ibuprofen for pain control. Take your antibiotics and Pyridium as prescribed. Call your primary care provider tomorrow, 12/25/2023 to make arrangements for follow-up appointment for further evaluation and management and to be seen in the next 3 to 5 days. Prescriptions: Ciprofloxacin [Cipro 500 MG] 500 mg PO BID #14 tablet Phenazopyridine HCl 200 mg [Pyridium 200 mg] 200 mg PO TID #6 tablet
[2023-12-24 14:52] VITALS: O2SAT 99
[2023-12-24 15:00] LABS: ADD URINE CULTURE? YES (NO); Appearance Clear (Clear); Bacteria None Seen /HPF (None Seen); Bilirubin Negative (Negative); Blood Moderate (Negative); Epithelial Cells Rare /HPF (None Seen); Glucose, Urine Negative (Negative); Hyaline Casts NONE SEEN /LPF (0-2); Ketones Negative (Negative); Leukocyte Esterase Moderate (Negative); Nitrite Negative (Negative); Ph 6.5 (4.6-8.0); Protein,Urine Dip Negative (Negative); Urobilinogen 0.2 mg/dL (0.2); WBC 21-50 /HPF (0-5)
[2023-12-24 15:21] VITALS: BP 110/72
[2023-12-24] MEDS ORDERED: Rocephin 1000 MG INJ ONE (15:29)
[2023-12-24] MEDS ORDERED: PYRIDIUM 200 MG ONE (15:29)
[2023-12-24] MEDS ORDERED: Levofloxacin 500 MG Tablet ONE (15:29)
[2023-12-24 15:30] LABS: HCG URINE TEST NEGATIVE (NEGATIVE)
[2023-12-24] MEDS: Rocephin 1000 MG INJ IM ONE (15:33)
[2023-12-24] MEDS: Levofloxacin 500 MG Tablet PO ONE (15:33)
[2023-12-24] MEDS: PYRIDIUM 200 MG PO ONE (15:33)
[2023-12-24 15:39] VITALS: PULSE 88; RESP 16
== END 2023-12-24 15:44 | disposition home or self-care (01) ==
LOC: ED 14:32
DX: N39.0 Urinary tract infection, site not specified (principal); R30.0 Dysuria; R10.9 Unspecified abdominal pain; R35.0 Frequency of micturition; Z79.899 Other long term (current) drug therapy
CPT/HCPCS: 81001; 81025; 87077; 87086; 87186; 96372; 99283; J0696; A9270-GY

== ENCOUNTER 2024-02-16 02:41 | Emergency (ER) | payer OTHER ==
[2024-02-16] MEDS ORDERED: ZOFRAN ODT 4 MG ONE (03:34)
[2024-02-16] MEDS ORDERED: XYLOCAINE VISCOUS 2% 15 ML CUP ONE (05:12)
[2024-02-16] MEDS ORDERED: TORAdol 30 mg Injection ONE (05:12)
[2024-02-16] MEDS ORDERED: MAALOX ES 30 ML UNIT DOSE ONE (05:13)
[2024-02-16 08:13] LABS: Appearance Clear (Clear)
[2024-02-16 08:14] LABS: Bilirubin Negative (Negative); Blood Negative (Negative); Glucose, Urine Negative (Negative); Ketones Trace (Negative); Leukocyte Esterase Trace (Negative); Nitrite Negative (Negative); Protein,Urine Dip Negative (Negative); Specific Gravity 1.025 (1.005-1.030)
[2024-02-16 08:15] LABS: Bacteria Rare /HPF (None Seen); Epithelial Cells Few /HPF (None Seen); HCG URINE TEST NEGATIVE (NEGATIVE)
[2024-02-16 08:16] LABS: Hematocrit 43.5 % (34.1-44.9); Hemoglobin 14.4 g/dL (11.2-15.7); Mean Cell Volume 90.4 fL (79.4-94.8); Mean Corpuscular Hemoglobin 29.9 pg (25.6-32.2); Mean Corpuscular Hgb Concent. 33.1 g/dL (32.2-35.5); Platelet Count 287 x10^3/uL (182-369); Red Blood Count 4.81 x10^6/uL (3.93-5.22); Red Cell Distribution Width 13.8 % (11.7-14.4); White Blood Count 7.6 x10^3/uL (3.98-10.04)
[2024-02-16 08:17] LABS: Absolute Neutrophil Ct (ANC) 4.43 x10^3/uL (1.56-6.13); BASOPHIL % 0.6 % (0.1-1.2); Basophil (Absolute #) 0.05 x10^3/uL (0.01-0.08); Eosinophil % 2.7 % (0.7-5.8); Eosinophil (Absolute #) 0.21 x10^3/uL (0.04-0.36); IMMATURE GRAN # 0.01 x10^3u/L (0.001-0.031); IMMATURE GRAN % 0.1 % (0.001-0.429); Lymphocyte (Absolute #) 2.56 x10^3/uL (1.18-3.74); Mean Platelet Volume 10.1 fL (9.4-12.3); Monocyte (Absolute #) 0.49 x10^3/uL (0.24-0.86); Monocytes % 6.3 % (4.7-12.5); Neutrophil % 57.3 % (34.0-71.1)
[2024-02-16 08:18] LABS: ANION GAP 14.6 MEQ/L (5-15); BILIRUBIN,TOTAL 1.1 mg/dL (0.2-1.3); Calcium 9.7 mg/dL (8.4-10.2); Creatinine 1 0.73 mg/dL (0.52-1.04); EST GLOMERULAR FILTRATION RATE 117.7 ML/MIN; Potassium 3.6 mmol/L (3.5-5.1); Total Protein 7.8 g/dL (6.3-8.2)
--- NOTE | 2024-02-16 08:25 | XRAY ---
CLINICAL HISTORY: LOWER PELVIC PAIN COMPARISON: 01/26/2023. TECHNIQUE: Axial sections of CT abdomen and pelvis were obtained without administration of intravenous contrast. Reformatted coronal and sagittal images were acquired."one of the following dose reduction techniques were utilized for this exam: Automated exposure control, adjustment of the mA and/or kV according to patient size, use of iterative reconstruction." FINDINGS: The liver is normal in attenuation. Mildly enlarged liver is identified, measuring approximately 17.5 cm in maximal craniocaudal dimension. No discrete focal hepatic lesion seen. No evidence of intrahepatic biliary dilatation. The gallbladder is normally distended. No discrete radiopaque calculus or evidence of acute cholecystitis. The spleen, pancreas, and bilateral adrenal glands appear unremarkable. Both kidneys are normal in size and shape. No urolithiasis or evidence of obstructive uropathy. The urinary bladder is suboptimally distended. The uterus is anteverted and normal in size. A few pheboliths in the pelvis. A prominent fluid-filled structure is identified within the pelvis predominantly on the left side [on axial sections image [id number]]. This may represent a prominent bowel loop however, limited evaluation is possible due to lack of contrast and paucity of fat. Sonographic correlation is recommended to exclude adnexal pathology in keeping with the history. The stomach is normally distended. Mild colonic fecal loading is seen. The appendix is not separately visualized. No ascites or pneumoperitoneum. No significant abnormality in the visualized lung bases. No acute osseous abnormality. IMPRESSION: 1. A prominent fluid-filled structure is identified within the pelvis predominantly on the left side, may represent a prominent bowel loop. However, limited evaluation is possible due to lack of contrast. Sonographic correlation is recommended to exclude adnexal pathology in keeping with the history. 2. Appendix is not separately visualized. Clinical and lab correlation is recommended. 3. No other significant interval change is noted from prior CT examination. Electronically Signed by: Julio Pimentel MD. (02/16/2024 04:45:05 EDT)
--- NOTE | 2024-02-16 08:48 | XRAY ---
Indication: Pain. Two-dimensional transvaginal pelvic sonogram performed. Comparison: None Uterus anteverted measuring 8.5 x 3.7 x 5.7 cm. 2 mm and 4 mm nabothian cysts. No other focal solid/cystic uterine mass. Endometrial stripe measures 9.2 mm. No endometrial cavity mass or fluid collection. Right ovary measures 2.9 x 1.9 x 2.2 cm and left measures 3.2 x 1.3 x 2.3 cm. Normal follicular cysts and perfusion bilaterally. Right ovary demonstrates 2.1 x 1.1 x 2.0 cm dominant cyst. No suspicious adnexal mass or free fluid. Impression: 2.1 cm dominant right ovary cyst and incidental nabothian cysts. Remaining transvaginal pelvic sonogram is negative.
== END 2024-02-16 09:20 | disposition home or self-care (01) ==
LOC: ED 02:54
DX: N83.209 Unspecified ovarian cyst, unspecified side (principal); R10.9 Unspecified abdominal pain; R11.0 Nausea
CPT/HCPCS: 74176; 76830; 80053; 81001; 81025; 82150; 83690; 85025; 87086; 96372; 99284; J1885; Q0162; A9270-GY

== ENCOUNTER 2024-06-08 22:09 | Emergency (ER) | payer OTHER ==
[2024-06-08 22:30] VITALS: BP 113/64; PULSE 91; RESP 18; TEMP 98; O2SAT 100
== END 2024-06-08 23:42 | disposition left against medical advice (07) ==
LOC: ED 22:09
DX: R51.9 Headache, unspecified (principal)
CPT/HCPCS: 99281